=== PATIENT | female | born 1945 | race Caucasian/White ===

== ENCOUNTER 2023-01-06 10:46 | Outpatient (CLI) | payer MEDICARE, OTHER, SELFPAY ==
--- NOTE | 2023-01-06 11:02 | XR_ITS ---
WS: [id number] XR chest 2V* [id number] REASON FOR EXAM: cough for 2 years and now pneumonia symptoms FINDINGS: Most recent comparison examination 06/13/2019. The heart and the mediastinum are within normal limits. Coarse reticular interstitial lung opacities in both upper lobes. Peribronchial cuffing in the upper lobes and also within the lower lobes. Subpleural bullous formation in the periphery of the right upper lobe. Large areas of increased lucen cy in the upper lobes adjacent to the pleural fissures. 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 Possibly acute or subacute pneumonitis.
== END 2023-01-06 10:47 | disposition home or self-care (01) ==
PROVIDERS: PCP Family Medicine; Visit Provider Clinical Nurse Specialist Adult Health
DX: R05.9 Cough, unspecified (principal)
CPT/HCPCS: 71046

== ENCOUNTER 2023-01-23 11:13 | Outpatient (CLI) | payer MEDICARE, OTHER, SELFPAY ==
--- NOTE | 2023-01-23 11:23 | XR_ITS ---
WS: [id number] Exam: XR chest 2V* [id number] Date/Time of Exam: 01/23/2023 11:35 AM Reason For Exam: follow up from Pneumonia 2 weeks ago Comparison 01/06/2023. Again noted are bilateral interstitial infiltrates with areas of honeycombing unchanged in appearance . No new consolidating infiltrates are seen. The lungs are hyperinflated. No pleural effusions. Mary l cardiomediastinal silhouette. Bony structures are intact. XR/XR chest 2V* [id number] IMPRESSION: 1. Bilateral interstitial infiltrates with areas of honeycombing. These changes are likely chronic. The pattern is nonspecific but this could be residual from Covid pneumonia. 2. No acute process is suspected.
== END 2023-01-23 11:14 | disposition home or self-care (01) ==
LOC: RAD 11:16
PROVIDERS: PCP Family Medicine; Visit Provider Family Medicine
DX: J18.9 Pneumonia, unspecified organism (principal)
CPT/HCPCS: 71046

== ENCOUNTER 2023-02-03 14:28 | Outpatient (CLI) | payer MEDICARE, OTHER, SELFPAY ==
--- NOTE | 2023-02-03 14:30 | CTR_ITS ---
PROCEDURE INFORMATION: Exam: CT Chest Without Contrast; Diagnostic Exam date and time: 02/03/2023 2:59 PM Age: 77 years old Clinical indication: Abnormal findings; Abnormal radiologic exam of lung or chest; Patient HX: HX covid, recent pneumonia, continued cough; Additional info: Recurrent lower resp complaints/abnormal x ray TECHNIQUE: Imaging protocol: Diagnostic computed tomography of the chest without contrast. Radiation optimization: All CT scans at this facility use at least one of these dose optimization techniques: automated exposure control; mA and/or kV adjustment per patient size (includes targeted exams where dose is matched to clinical indication); or iterative reconstruction. REPORTING DATA: Count of CT and Cardiac NM exams in prior 12 months: This patient has received 0 known CTs and 0 known cardiac nuclear medicine studies in the 12 months prior to the current study. COMPARISON: CR XR chest 2V* [id number] 01/23/2023 11:30 AM RADIATION DOSE METRICS: Total DLP (mGy-cm): 171.33 FINDINGS: Lungs: There are scattered interstitial changes consisting of coarsened reticular and ground-glass opacities both lung aguilar fairly symmetric and more apparent peripherally with accompanying honeycombing that is most pronounced within the bronchovascular interstitium of the upper lung zones. Findings are nonspecific and may represent chronic sequelae of previous COVID-19 infection, chronic hypersensitivity pneumonitis or idiopathic interstitial lung disease. Pleural spaces: Mild smooth pleural thickening left paravertebral gutter likely chronic. Right pleural surface is unremarkable. Heart: Heart is not significantly enlarged. No significant coronary artery calcifications. No significant pericardial effusion. Lymph nodes: Unremarkable. No enlarged lymph nodes. Vasculature: Thoracic aorta is unremarkable. No aortic aneurysm or evidence of aortic dissection. Bones/joints: Unremarkable. No acute fracture. Soft tissues: Unremarkable. CT/CT chest wo con [id number] IMPRESSION: Scattered interstitial infiltrates with areas of honeycombing likely chronic as discussed above.
== END 2023-02-03 14:29 | disposition home or self-care (01) ==
LOC: RAD 14:35
PROVIDERS: PCP Family Medicine; Visit Provider Family Medicine
DX: J18.9 Pneumonia, unspecified organism (principal)
CPT/HCPCS: 71250; 80053; 85025

== ENCOUNTER → 2025-07-29 10:25 | Outpatient (BNVA) | payer MEDICARE, OTHER, SELFPAY | PROVIDERS: PCP Family Medicine; Visit Provider Family Medicine | DX: I63.81 Other cerebral infarction due to occlusion or stenosis of small artery (principal) | CPT/HCPCS: 80053; 80061; 85025 ==